=== PATIENT | male | born 2000 | race Caucasian/White ===

== ENCOUNTER → 2022-08-15 07:56 | Outpatient (REF) | payer OTHER, SELFPAY ==
--- NOTE | 2022-08-15 08:14 | CA_ITS ---
Transthoracic Echocardiogram Patient (Last, First, Middle): Edilson Mercedes, Gender: Male Date of : 2000 Age: 22 Procedure Date: 08/15/2022 Procedure Type: Transthoracic Echocardiogram Location: OP Height: 165.1 cm Weight: 140.62 kg BSA: 2.38 m2 Heart Rate: bpm BP: 128 / 68 mmHg Swim Instructor: Referring MD: Antonio Roldan MD Symptoms: OTHER CARDIOMYOPATHIES Study Quality: Adequate w Contrast ECG Rhythm: Sinus Conclusions: - The left ventricular systolic function is normal. The calculated ejection fraction is 64% by biplane method. - There is moderately increased left ventricular wall thickness. - No obvious valvular pathology seen on this study. Findings Left Ventricle Normal left ventricular cavity size. There is moderately increased left ventricular wall thickness. The left ventricular systolic function is normal. The calculated ejection fraction is 64% by biplane method. There is no evidence of regional wall motion abnormalities. Diastolic function is normal for age. Right Ventricle Normal right ventricular cavity size and systolic function. Atria Both atria are normal in size. Aortic Valve The aortic valve structure and function is likely normal. There is no aortic valve regurgitation. Mitral Valve The mitral valve appears normal. There is no mitral valve regurgitation. There is no mitral valve stenosis. Pulmonic Valve The pulmonic valve is likely normal. Tricuspid Valve Normal tricuspid valve structure. There is trace tricuspid valve regurgitation. There is no evidence of pulmonary hypertension. Great Vessels The asc aorta is normal in size. Venous The inferior vena cava is normal in size and collapses greater than 50% with inspiration. Pericardium/Pleural There is no evidence of pericardial effusion. Prior Study Comparison No prior study available for comparison. Recommendations, Care & Conclusions No obvious valvular pathology seen on this study. Measurements 2D Linear Measurements IVSd: 1.35 0.6-0.9/0.6-1.0 cm LVIDd: 3.86 3.9-5.3/4.2-5.9 cm LVIDd Index: 1.62 2.4-3.2/2.2-3.1 cm/m2 LVIDs: 2.35 2.0-3.6 cm LVPWd: 1.37 0.7-1.1 cm Ao Root: 2.80 2.1-3.5 cm LA Diam: 3.50 2.7-3.8/3.0-4.0 cm LAIDs Index: 1.47 1.5-2.3 cm/m2 LV Mass: 236.47 67-162/88-224 g LV Mass Index: 99.36 43-95/49-115 g/m2 LVOT Diam: 2.10 3.0+(-)1.3 cm 2D Systolic Function EF 4C: 71.20 >55% EF 2C: 55.90 >55% EF BiP: 63.50 >55% Mitral Valve MV Pk E: 1.23 MV PK A: 0.66 MV Decel Time: 137.00 E/A: 1.90 E'Lateral: 11.90 E'Medial: 8.05 E/E' Med: 15.30 E/E' Lat: 10.30 PHT: 40.00 MVA PHT: 5.50 Decel [place]: 9.03 Aortic Valve AoV Pk Jarrett: 1.16 AoV Mn Jarrett: 0.83 AoV VTI: 0.29 AoV Pk Grad: 5.00 Aov Mn Grad: 3.00 ARUN Cont.VTI: 2.62 LVOT LVOT Pk Jarrett: 0.94 LVOT Mn Jarrett: 0.61 LVOT VTI: 0.22 LVOT Pk Grad: 4.00 LVOT Mn Grad: 2.00 LVOT Diam: 2.10 LVOT Area: 3.46 Diastolic Function MV Pk E: 1.23 MV Pk A: 0.66 E/A: 1.90 E'Medial: 8.05 E/E' Med: 15.30 E' Laterial: 11.90 E/E' Lat: 10.30 Right Ventricle TAPSE (mm): 26.00 TVS' Jarrett: 10.00 Tricuspid Valve TR Pk Jarrett: 1.81 TR Pk Grad: 13.00 RA Press: 3.00 RVSP: 16.00 Great Vessels Aorta Ao Root-2D: 2.80 2.0-3.7 cm Ao Asc: 2.90 2.1-3.4 cm Pulmonary Valve PV Pk Jarrett: 1.09 Peak PV Grad: 5.00 Updated in Other Vendor System with Status of Final Anurag Hanley MD electronically signed on 08/16/2022 11:51:30 AM with status of Final
== END ==
LOC: HO.CARD 07:56
PROVIDERS: PCP Internal Medicine; Visit Provider Internal Medicine Cardiovascular Disease
DX: I42.8 Other cardiomyopathies (principal)
CPT/HCPCS: 93306; Q9957